=== PATIENT | female | born 1965 | race Caucasian/White ===

== ENCOUNTER 2024-09-24 20:17 | Emergency (ER) | payer BC, OTHER ==
[~2024-09-24] VITALS: Ht 165.1 cm; Wt 55.3 kg
[2024-09-24] MEDS ORDERED: CEFTRIAXONE /D5W 50ML IVPB **ER PYXIS IV ONE (20:39)
[2024-09-24] MEDS ORDERED: ONDANSETRON 4 MG/2 ML VIAL ONE (20:39)
[2024-09-24] MEDS ORDERED: MORPHINE SULFATE 2 MG/1 ML DISP.SYRIN ONE ×4 (20:40→22:34)
[2024-09-24 20:50] LABS: BASOPHILS % (AUTO) 0.4 % (0.0-2.0); DIFFERENTIAL COMMENT 0; EOSINOPHILS # (AUTO) 0.2 K/uL (0.0-0.7); EOSINOPHILS % (AUTO) 2.9 % (0.0-7.0); HEMATOCRIT 31.1 % (31.2-41.9); HEMOGLOBIN 9.9 g/dL (10.9-14.3); LYMPHOCYTES # (AUTO) 1.2 K/uL (0.8-4.8); LYMPHOCYTES % (AUTO) 21.9 % (20.5-51.5); MEAN CORPUSCULAR HEMOGLOBIN 27.6 uug (24.7-32.8); MEAN CORPUSCULAR HGB CONC 32 g/dL (32.3-35.6); MEAN CORPUSCULAR VOLUME 86.4 fL (75.5-95.3); MONOCYTES # (AUTO) 0.5 K/uL (0.1-1.30); MONOCYTES % (AUTO) 9.1 % (0.0-11.0); NEUTROPHILS # (AUTO) 3.5 K/uL (1.8-8.9); NEUTROPHILS % (AUTO) 65.7 % (38.5-71.5); PLATELET COUNT (AUTO) 278 K/uL (179-408); RED CELL DISTRIBUTION WIDTH 15.9 % (12.3-17.7); WHITE BLOOD COUNT (AUTO) 5.4 K/uL (3.8-11.8)
[2024-09-24] MEDS: IV NORMAL SALINE 1000 ML BAG IV ONE (20:52)
[2024-09-24] MEDS: ONDANSETRON 4 MG/2 ML VIAL IV ONE (20:54)
[2024-09-24] MEDS: CEFTRIAXONE 1 G in IV DEXTROSE 5% 50 ML IV ONE (20:54)
[2024-09-24] MEDS: MORPHINE SULFATE 2 MG/1 ML DISP.SYRIN IV ONE (20:54)
[2024-09-24 20:56] LABS: CALCIUM 9.5 mg/dL (8.5-10.1); CARBON DIOXIDE 29 mmol/L (21-32); CHLORIDE 103 mmol/L (98-107); CREATININE 1.1 mg/dL (0.6-1.3); GLUCOSE 109 mg/dL (74-106); POTASSIUM 4.1 mmol/L (3.5-5.1); SODIUM SERUM 140 mmol/L (136-145); UREA NITROGEN, BLOOD 31 mg/dL (7-18)
[2024-09-24] MEDS: MORPHINE SULFATE 4 MG/1 ML DISP.SYRIN IV ONE ×3 (21:03→22:38)
[2024-09-24 21:04] LABS: ALANINE AMINOTRANSFERASE 23 U/L (14-59); ALBUMIN 3.1 g/dL (3.4-5.0); ALKALINE PHOSPHATASE 128 U/L (50-136); ASPARTATE AMINOTRANSFERASE 22 U/L (15-37); BILIRUBIN,DIRECT 0.1 mg/dL (0.0-0.2); BILIRUBIN,TOTAL 0.5 mg/dL (0.2-1.0); TOTAL PROTEIN, SERUM 6.9 g/dL (6.4-8.2)
[2024-09-24] MEDS ORDERED: LOPERAMIDE HCL 2 MG CAPSULE ONE (22:16)
[2024-09-24] MEDS: LOPERAMIDE HCL 2 MG CAPSULE PO ONE (22:27)
[2024-09-24 22:49] LABS: *BILIRUBIN,URIN NEGATIVE (NEGATIVE); *CLARITY,URINE CLEAR (CLEAR); *COLOR,URINE YELLOW (YELLOW); *KETONES,URINE NEGATIVE (NEGATIVE); *PROTEIN,URINE 2+ (NEGATIVE); *UROBILINOGEN,URINE 0.2 E.U./dl (NORMAL); LEUKOCYTE ESTERASE ,URINE NEGATIVE (NEGATIVE); NITRITE, URINE POSITIVE (NEGATIVE); UGLUCOSE NEGATIVE (NEGATIVE)
[2024-09-24 23:01] LABS: *BLOOD, URINE TRACE (NEGATIVE)
[2024-09-24] MEDS ORDERED: CITA40TA11 PO (23:07)
[2024-09-24] MEDS ORDERED: GABA300C PO (23:07)
[2024-09-24] MEDS ORDERED: CARB-35 PO (23:07)
[2024-09-24] MEDS ORDERED: LIDO30AD10 TD (23:07)
[2024-09-24] MEDS ORDERED: POLY17PO4 PO (23:07)
[2024-09-24] MEDS ORDERED: MAGN400O6 PO (23:10)
[2024-09-24] MEDS ORDERED: LOPE2TAB25 PO (23:10)
[2024-09-24] MEDS ORDERED: [UNRECOGNIZED DRUG - CODE] PO (23:10)
[2024-09-24] MEDS ORDERED: TIZA4TAB5 PO (23:10)
[2024-09-24 23:14] LABS: BACTERIA,URINE MANY /HPF (NONE SEEN); SQUAMOUS EPITHELIAL CELL,UR FEW /HPF (NONE SEEN); WBC,URINE 0-3 /HPF (0-3)
[2024-09-24 23:15] LABS: CALCIUM OXALATE CRYSTALS,UR FEW /HPF (NONE SEEN); MUCUS,URINE FEW /LPF (0-FEW)
[2024-09-24] MEDS ORDERED: ROSU40TA PO (23:18)
[2024-09-24] MEDS ORDERED: METF-494 PO (23:18)
[2024-09-25] MEDS ORDERED: MORPHINE SULFATE 4 MG/1 ML DISP.SYRIN ONE (00:09)
[2024-09-25] MEDS: MORPHINE SULFATE 4 MG/1 ML DISP.SYRIN IV ONE (00:10)
[2024-09-25 00:46] VITALS: BP 122/86; O2SAT 100
== END 2024-09-25 00:47 ==
LOC: ER 20:22
DX: R19.7 Diarrhea, unspecified (principal); I95.9 Hypotension, unspecified; F11.20 Opioid dependence, uncomplicated; G20.A1 Parkinson's disease without dyskinesia, without mention of fluctuations; G89.4 Chronic pain syndrome; Z20.822 Contact with and (suspected) exposure to COVID-19; Z88.7 Allergy status to serum and vaccine
CPT/HCPCS: 99285; 96365; 96375; 71045; 87426; 87804 ×2; 80076; 80048; 81001; 85025; 87040 ×2; 84484; 36415; 93005; 96376 ×2; 83605; 87086; J0696; J2405; J2270 ×5; J7040; A4606; A4663; C1758

== ENCOUNTER 2024-09-27 22:04 | Inpatient (IN) | payer BC, OTHER ==
[~2024-09-27] VITALS: Ht 167.6 cm; Wt 53.5 kg
[~2024-09-27 22:04] MED LIST: CARB-35 PO; CITA40TA11 PO; GABA300C PO; LIDO30AD10 TD; LOPE2TAB25 PO; MAGN400O6 PO; METF-494 PO; POLY17PO4 PO; ROSU40TA PO; TIZA4TAB5 PO; [UNRECOGNIZED DRUG - CODE] PO
[2024-09-27] MEDS ORDERED: HYOS-15 PO (22:19)
[2024-09-27] MEDS ORDERED: ACET-2030 PO (22:19)
[2024-09-27] MEDS ORDERED: SENN8.6T19 PO (22:19)
[2024-09-27] MEDS ORDERED: NALO4SPR BNOSTRILS (22:19)
[2024-09-27] MEDS ORDERED: BISA10SU61 RC (22:19)
[2024-09-27] MEDS ORDERED: ONDA4TAB11 PO (22:19)
[2024-09-27] MEDS ORDERED: MORP15TA PO (22:19)
[2024-09-27] MEDS ORDERED: ACET325T53 PO (22:19)
[2024-09-27] MEDS ORDERED: LORA0.5T48 PO (22:19)
[2024-09-27] MEDS ORDERED: NAPR-1009 PO (22:19)
[2024-09-27] MEDS ORDERED: GABA300T25 PO (22:19)
[2024-09-27] MEDS ORDERED: MORPHINE SULFATE 4 MG/1 ML DISP.SYRIN ONE (23:02)
[2024-09-27] MEDS: MORPHINE SULFATE 4 MG/1 ML DISP.SYRIN IV ONE (23:15)
[2024-09-27 23:44] LABS: BASOPHILS % (AUTO) 0.5 % (0.0-2.0); EOSINOPHILS # (AUTO) 0.2 K/uL (0.0-0.7); EOSINOPHILS % (AUTO) 4.9 % (0.0-7.0); HEMATOCRIT 30.4 % (31.2-41.9); LYMPHOCYTES # (AUTO) 1.3 K/uL (0.8-4.8); LYMPHOCYTES % (AUTO) 25.3 % (20.5-51.5); MEAN CORPUSCULAR HEMOGLOBIN 27.9 uug (24.7-32.8); MEAN CORPUSCULAR HGB CONC 33 g/dL (32.3-35.6); MEAN CORPUSCULAR VOLUME 84.6 fL (75.5-95.3); MONOCYTES # (AUTO) 0.6 K/uL (0.1-1.30); MONOCYTES % (AUTO) 12.2 % (0.0-11.0); NEUTROPHILS # (AUTO) 2.9 K/uL (1.8-8.9); NEUTROPHILS % (AUTO) 57.1 % (38.5-71.5); PLATELET COUNT (AUTO) 258 K/uL (179-408); RED CELL DISTRIBUTION WIDTH 15.1 % (12.3-17.7)
[2024-09-28 00:14] LABS: ALBUMIN 3.5 g/dL (3.4-5.0); BILIRUBIN,TOTAL 0.4 mg/dL (0.2-1.0); CALCIUM 8.7 mg/dL (8.5-10.1); CREATININE 0.8 mg/dL (0.6-1.3); POTASSIUM 3.7 mmol/L (3.5-5.1); TOTAL PROTEIN, SERUM 6.8 g/dL (6.4-8.2)
[2024-09-28] MEDS ORDERED: MORPHINE SULFATE 4 MG/1 ML DISP.SYRIN ONE ×2 (00:22→02:58)
[2024-09-28] MEDS ORDERED: MORPHINE SULFATE 2 MG/1 ML DISP.SYRIN ONE ×3 (00:22→02:59)
[2024-09-28] MEDS: MORPHINE SULFATE 10 MG/1 ML DISP.SYRIN IV ONE ×2 (00:31→03:15)
[2024-09-28] MEDS ORDERED: SIMETHICONE PO SCH (00:45)
[2024-09-28] MEDS ORDERED: [UNRECOGNIZED DRUG - OTHER] PO SCH (00:45)
[2024-09-28] MEDS ORDERED: MAGNESIUM HYDROXIDE 30 ML LIQUID UDC PO PRN ×2 (00:45)
[2024-09-28] MEDS ORDERED: CALCIUM CARBONATE PO SCH (00:45)
[2024-09-28] MEDS ORDERED: MORPHINE SULFATE 4 MG/1 ML DISP.SYRIN IV PRN (00:45)
[2024-09-28] MEDS ORDERED: BISACODYL 10 MG SUPP.RECT RC PRN (00:45)
[2024-09-28] MEDS ORDERED: NALOXONE HCL 0.4 MG/ML AMPUL IV PRN (00:45)
[2024-09-28] MEDS ORDERED: SENNOSIDES 1 TABLET PO PRN ×2 (00:45→05:15)
[2024-09-28] MEDS: MORPHINE SULFATE 4 MG/1 ML DISP.SYRIN IV ONE ×2 (01:45→08:17)
[2024-09-28] MEDS ORDERED: diphenhydrAMINE 50 MG/1 ML VIAL ONE (02:01)
[2024-09-28] MEDS: diphenhydrAMINE 50 MG/1 ML VIAL IV ONE (02:08)
[2024-09-28] MEDS ORDERED: HYOSCYAMINE SULFATE 0.125 MG TABLET PO PRN (04:15)
[2024-09-28 06:36] LABS: BASOPHILS % (AUTO) 0.5 % (0.0-2.0); EOSINOPHILS # (AUTO) 0.2 K/uL (0.0-0.7); EOSINOPHILS % (AUTO) 5.5 % (0.0-7.0); HEMATOCRIT 29.4 % (31.2-41.9); HEMOGLOBIN 9.8 g/dL (10.9-14.3); LYMPHOCYTES # (AUTO) 1.3 K/uL (0.8-4.8); LYMPHOCYTES % (AUTO) 36.5 % (20.5-51.5); MEAN CORPUSCULAR HEMOGLOBIN 28.3 uug (24.7-32.8); MEAN CORPUSCULAR HGB CONC 33 g/dL (32.3-35.6); MEAN CORPUSCULAR VOLUME 85.4 fL (75.5-95.3); MONOCYTES # (AUTO) 0.5 K/uL (0.1-1.30); MONOCYTES % (AUTO) 14.6 % (0.0-11.0); NEUTROPHILS # (AUTO) 1.6 K/uL (1.8-8.9); NEUTROPHILS % (AUTO) 42.9 % (38.5-71.5); PLATELET COUNT (AUTO) 247 K/uL (179-408); RED BLOOD CELL COUNT(AUTO) 3.45 MIL/uL (3.63-4.92); RED CELL DISTRIBUTION WIDTH 15.1 % (12.3-17.7); WHITE BLOOD COUNT (AUTO) 3.6 K/uL (3.8-11.8)
[2024-09-28 06:42] LABS: DIFFERENTIAL COMMENT 1
[2024-09-28 06:47] LABS: CREATININE 0.8 mg/dL (0.6-1.3); POTASSIUM 3.7 mmol/L (3.5-5.1)
[2024-09-28 07:03] LABS: MAGNESIUM 2.2 mg/dL (1.8-2.4); PHOSPHOROUS 4.9 mg/dL (2.5-4.9)
[2024-09-28 07:51] VITALS: BP 107/63; TEMP 97.6; O2SAT 99
[2024-09-28] MEDS: CITALOPRAM 20 MG TABLET PO SCH (08:30)
[2024-09-28] MEDS: MIRALAX 17 GM POWD.PACK PO SCH (08:34)
[2024-09-28] MEDS: NAPROXEN 500 MG TABLET PO SCH (08:58)
[2024-09-28] MEDS ORDERED: LIDOCAINE 5% PATCH TD SCH (09:00)
[2024-09-28] MEDS ORDERED: Medication Not On Formulary EA (Gabapentin (Gralise) 1 TAB) PO SCH (09:00)
[2024-09-28] MEDS ORDERED: CARBIDOPA/LEVODOPA 25-100MG TAB.RAPDIS PO SCH ×2 (09:00)
[2024-09-28 12:49] LABS: THYROID STIMULATING HORMONE 8.074 mIU/mL (0.358-3.740)
[2024-09-28 13:00] VITALS: BP 155/96; TEMP 96.3; O2SAT 96
[2024-09-28] MEDS ORDERED: CARB1TAB21 PO (13:00)
[2024-09-28] MEDS: CARBIDOPA/LEVODOPA 25-100MG TABLET PO SCH (13:24)
[2024-09-28] MEDS: GABAPENTIN 300 MG CAPSULE PO SCH (13:24)
[2024-09-28] MEDS: MORPHINE SULFATE 4 MG/1 ML DISP.SYRIN IV PRN (13:25)
[2024-09-28] MEDS ORDERED: SIMETHICONE 80 MG TAB.CHEW PO PRN (13:30)
[2024-09-28] MEDS: LIDOCAINE 5% PATCH TD SCH (15:25)
[2024-09-28 16:38] VITALS: BP 147/96; TEMP 97.9; O2SAT 95
[2024-09-28] MEDS: ACETAMINOPHEN 325 MG TABLET PO PRN (17:56)
[2024-09-28 20:42] VITALS: BP 165/97; TEMP 97.9; O2SAT 94
[2024-09-29 00:30] VITALS: BP 159/88; TEMP 97.5; O2SAT 91
[2024-09-29] MEDS: ONDANSETRON 4 MG/2 ML VIAL IV PRN (01:50)
[2024-09-29 06:45] LABS: BASOPHILS % (AUTO) 0.3 % (0.0-2.0); EOSINOPHILS # (AUTO) 0.3 K/uL (0.0-0.7); EOSINOPHILS % (AUTO) 5.7 % (0.0-7.0); HEMATOCRIT 32.2 % (31.2-41.9); HEMOGLOBIN 10.6 g/dL (10.9-14.3); LYMPHOCYTES # (AUTO) 1.5 K/uL (0.8-4.8); LYMPHOCYTES % (AUTO) 31.8 % (20.5-51.5); MEAN CORPUSCULAR HEMOGLOBIN 27.9 uug (24.7-32.8); MEAN CORPUSCULAR HGB CONC 33 g/dL (32.3-35.6); MEAN CORPUSCULAR VOLUME 84.9 fL (75.5-95.3); MONOCYTES # (AUTO) 0.6 K/uL (0.1-1.30); NEUTROPHILS # (AUTO) 2.3 K/uL (1.8-8.9); NEUTROPHILS % (AUTO) 49.2 % (38.5-71.5); PLATELET COUNT (AUTO) 281 K/uL (179-408); RED BLOOD CELL COUNT(AUTO) 3.79 MIL/uL (3.63-4.92); WHITE BLOOD COUNT (AUTO) 4.6 K/uL (3.8-11.8)
[2024-09-29 06:53] LABS: CALCIUM 8.9 mg/dL (8.5-10.1); CREATININE 0.7 mg/dL (0.6-1.3); POTASSIUM 3.6 mmol/L (3.5-5.1)
[2024-09-29 06:54] LABS: DIFFERENTIAL COMMENT 1
[2024-09-29] MEDS: LORAZEPAM 0.5 MG TABLET PO PRN (07:54)
[2024-09-29] MEDS: MORPHINE SULFATE 4 MG/1 ML DISP.SYRIN IV PRN (07:54)
[2024-09-29] MEDS ORDERED: NALOXONE HCL 0.4 MG/ML AMPUL IV PRN (08:45)
[2024-09-29] MEDS ORDERED: FENTANYL 12 MCG/HR PATCH TD SCH (09:00)
[2024-09-29] MEDS ORDERED: OXYCODONE HCL 5 MG TABLET PO PRN (09:45)
[2024-09-29 10:00] VITALS: BP 152/88; TEMP 97.8; O2SAT 93
[2024-09-29] MEDS: BACLOFEN 10 MG TABLET PO SCH (10:29)
[2024-09-29] MEDS: MORPHINE SULFATE SR 15 MG TABLET.SA PO SCH (10:30)
[2024-09-29 12:00] VITALS: BP 111/90; TEMP 98.6; O2SAT 92
[2024-09-29] MEDS: TIZANIDINE HCL 4 MG TABLET PO SCH (14:30)
[2024-09-29 16:00] VITALS: BP 95/55; TEMP 98.1; O2SAT 92
[2024-10-03 11:10] LABS: METHYLMALONIC ACID 332 nmol/L (0-378)
== END 2024-09-29 18:15 | disposition left against medical advice (07) | DRG 92 ==
LOC: ER 22:04 → TELE3 09-28 00:35
PROVIDERS: ATTEND Internal Medicine
DX: G24.3 Spasmodic torticollis (principal); F11.20 Opioid dependence, uncomplicated; F33.1 Major depressive disorder, recurrent, moderate; G89.4 Chronic pain syndrome; G20.B1 Parkinson's disease with dyskinesia, without mention of fluctuations; F41.9 Anxiety disorder, unspecified; I51.9 Heart disease, unspecified; D63.8 Anemia in other chronic diseases classified elsewhere; I95.9 Hypotension, unspecified; Z66 Do not resuscitate; Z79.899 Other long term (current) drug therapy
CPT/HCPCS: 36415; 73090; 73130; 83735; 83921; 84100; 84443; 85025; 93005; 94760; A4606; A4663; G0378; J1200; J2270; J2405; J8499